=== PATIENT | male | born 1970 | race American Indian/Alaskan Native ===

== ENCOUNTER 2020-01-02 10:29 | Inpatient (IN) | payer OTHER ==
[2020-01-02] MEDS ORDERED: SODIUM CHLORIDE 0.9% 500 ML 500 ML IV ONE (10:34)
[2020-01-02 10:49] LABS: Hematocrit 39.3 % (35.5-45.6); Hemoglobin 13.4 gm/dl (11.8-15.2); Mean Corpuscular HGB Conc 34 % (32-34); Mean Corpuscular Volume 91 fl (84-94); Platelet Count 241 K/mm3 (140-440); Red Blood Count 4.32 M/mm3 (3.65-5.03); Red Cell Distribution Width 13.8 % (13.2-15.2)
--- NOTE | 2020-01-02 10:57 | XRay Report ---
CHEST 1 VIEW INDICATION / CLINICAL INFORMATION: possible Sepsis. COMPARISON: None available. FINDINGS: SUPPORT DEVICES: None. HEART / MEDIASTINUM: No significant abnormality. LUNGS / PLEURA: Low lung volumes without focal parenchymal or pleural disease. No pneumothorax. ADDITIONAL FINDINGS: No significant additional findings. IMPRESSION: 1. Low lung volumes without acute findings. Signer Name: Gerardo Nagel MD Signed: 01/02/2020 10:53 AM Workstation Name: [id number]
[2020-01-02 11:01] LABS: INR 1.22 (0.87-1.13)
[2020-01-02 11:07] LABS: Alanine Aminotransferase 13 units/L (7-56); Albumin 2.4 g/dL (3.9-5); BUN/Creatinine Ratio 12; Blood Urea Nitrogen 11 mg/dL (9-20); Calcium 9.3 mg/dL (8.4-10.2); Hemolysis Index 2
[2020-01-02] MEDS ORDERED: VANCOMYCIN/NS 1 GM/250 ML 1 GM/250 ML BAG IV ONE (11:19)
[2020-01-02] MEDS ORDERED: ACETAMINOPHEN 500 MG TAB PO ONE (11:24)
--- NOTE | 2020-01-02 11:26 | Emergency Department Report ---
HPI - General Chief Complaint: Skin/Abscess/Foreign Body Time Seen by Provider: 01/02/20 11:12 - HPI HPI: This is a 49-year-old -Turkish male presents to the emergency department from home with complaint of an abscess to the back of the neck and potentially upper back. Patient says that this started as a "knot" on Tuesday, 4 days ago. The patient went to an urgent care clinic 2 days ago and was told that he needs to get a CT scan. Patient says that he attempted to find some place to get a CT scan done but the "referrals would not go through." This morning he started having some foul drainage from the bottom of his neck. He presents with a fever, tachycardia, and a code sepsis has been initiated. The patient denies that he felt febrile but does present with a temperature of 101.9 F. He has a past medical history of [id number] diabetes and hypertension. He is an occasional cigar smoker. ED Past Medical Hx - Past Medical History Previous Medical History?: Yes Hx Hypertension: Yes Hx Diabetes: Yes ED Review of Systems ROS: Stated complaint: SICK Other details as noted in HPI Comment: All other systems reviewed and negative Constitutional: fever. denies: weakness Eyes: denies: eye pain, vision change ENT: denies: ear pain, throat pain Respiratory: denies: cough, shortness of breath Cardiovascular: denies: chest pain, palpitations Gastrointestinal: denies: vomiting, melena Genitourinary: denies: dysuria, discharge Musculoskeletal: back pain. denies: arthralgia Skin: lesions. denies: rash Neurological: denies: weakness, numbness Physical Exam - Physical Exam Vital Signs: Vital Signs 01/02/20 10:35 Temperature 101.9 F H Pulse Rate 139 H Respiratory 22 Rate Blood Pressure 152/80 [Right] O2 Sat by Pulse 97 Oximetry Physical Exam: GENERAL: The patient is well-developed well-nourished. HENT: Normocephalic. Atraumatic. Patient has moist mucous membranes. EYES: Extraocular motions are intact. NECK: Supple. Trachea is midline. CHEST/LUNGS: Clear to auscultation. There is no respiratory distress noted. HEART/CARDIOVASCULAR: Regular. There is moderate tachycardia. ABDOMEN: Abdomen is soft, nontender. Patient has normal bowel sounds. Morbidly obese habitus. SKIN: Skin is warm and dry. There is erythema, swelling and induration to the posterior head from the occiput down to the upper thoracic back. The skin is thickened with an orange peel appearance. There is a small area of purulent drainage to the inferior portion of the posterior neck. NEURO: The patient is awake, alert, and oriented. The patient is cooperative. The patient has no focal neurologic deficits. Normal speech. MUSCULOSKELETAL: There is no tenderness or deformity. There is no limitation range of motion. ED Course Vital Signs 01/02/20 10:35 Temperature 101.9 F H Pulse Rate 139 H Respiratory 22 Rate Blood Pressure 152/80 [Right] O2 Sat by Pulse 97 Oximetry ED Medical Decision Making - Lab Data Result diagrams: 01/02/20 10:38 01/02/20 10:38 - Radiology Data Radiology results: report reviewed, image reviewed interpreted by me: Chest x-ray does not show any acute process. There are no pleural effusions, obvious pneumonia and there is no pneumothorax. No significant cardiomegaly. CT NECK WITH CONTRAST HISTORY: Posterior neck abscess COMPARISON: None. TECHNIQUE: Routine CT of the neck is performed following intravenous contrast. All CT scans at this location are performed using CT dose reduction for ALARA by means of automated exposure control CONTRAST: 100 mL Omnipaque 300 FINDINGS: Cellulitis without abscess formation seen in the dorsal subcutaneous fat in the mid cervical region. No focal area of abscess formation is seen. This is resulting in extensive subcutaneous fatty stranding. There may be extension into the superficial posterior paraspinal muscles. Inflammatory changes at extending from the occiput up to thoracic region. Skull Base: No significant abnormality. Parotid, Carotid, Retropharyngeal, Prevertebral, Pharyngeal Mucosal, and Manuscript Editor Spaces: No abnormal mass, enhancing lesion or other significant abnormality. Airway: Patent and without significant abnormality. Lymphatics: Reactive lymph nodes bilaterally Vasculature: No significant abnormality. Osseous Structures: No significant abnormality Additional findings: None. IMPRESSION: Phlegmon (cellulitis) in the dorsal subcutaneous fat extending from the occiput after the thoracic region; no abscess formation; there may be extension into superficial posterior paraspinal muscle. - Medical Decision Making This patient presents to the emergency department with a 4-day history of progressive worsening tenderness and inflammation to the posterior neck and upper back. The patient came into triage and was found to have a fever and tachycardia and a code sepsis was initiated. Patient was given IV fluid resuscitation, acetaminophen and IV antibiotics. Labs shows a leukocytosis of 26,000. There is some hyperglycemia but no signs of diabetic ketoacidosis. On examination the patient has an area of swelling, erythema and induration from the occiput down to the upper thoracic back. A CT scan of the neck and upper back was done with IV contrast that shows a cellulitis and phlegmon but no current abscess. The patient was seen by the general surgeon in the emergency department feels that there is probably a small area of abscess that can be drained and the patient will be taken to the OR. After that the patient will be admitted to the hospital for further evaluation and treatment and was accepted for admission by the hospitalist, Dr. Todd. Critical Care Time: Yes Critical care time in (mins) excluding proc time.: 35 Critical care attestation.: If time is entered above; I have spent that time in minutes in the direct care of this critically ill patient, excluding procedure time. Critical care time was spent on this patient in doing his initial evaluation, multiple re- evaluations, ordering and interpretation of labs and imaging, IV antibiotics, IV fluid resuscitation, multiple discussions with the patient. Critical Care Time: 35 minutes ED Disposition Clinical Impression: Cellulitis of neck, Cellulitis of back, Neck abscess, Acute hyperglycemia Sepsis Qualifiers: Sepsis type: sepsis due to unspecified organism Sepsis acute organ dysfunction status: unspecified Qualified Code(s): A41.9 - Sepsis, unspecified organism Disposition: OP ADMIT IP TO THIS HOSP Is pt being admited?: Yes Condition: Serious Time of Disposition: 15:20
[2020-01-02 11:44] LABS: Basophils % (Manual) 0 % (0.0-1.8); Platelet Estimate Consistent w Auto; RBC Morphology Normal; Total Cells Counted 100
[2020-01-02] MEDS ORDERED: VANCOMYCIN 2,000 MG in SODIUM CHLORIDE 0.9% 500 ML 500 ML IV ONE (11:45)
[2020-01-02] MEDS ORDERED: SODIUM CHLORIDE 0.9% 1000 ML 2,000 ML IV ONE (11:51)
[2020-01-02] MEDS ORDERED: INSULIN REGULAR, HUMAN 100 UNIT/ML 3ML VIAL IV SCH (12:00)
[2020-01-02] MEDS ORDERED: INSULIN REGULAR, HUMAN 100 UNITS/1 ML ONE (12:00)
--- NOTE | 2020-01-02 12:00 | Cat Scan Report ---
CT NECK WITH CONTRAST HISTORY: Posterior neck abscess COMPARISON: None. TECHNIQUE: Routine CT of the neck is performed following intravenous contrast. All CT scans at this [facility] are performed using CT dose reduction for ALARA by means of automated exposure control CONTRAST: 100 mL Omnipaque 300 FINDINGS: Cellulitis without abscess formation seen in the dorsal subcutaneous fat in the mid cervical region. No focal area of abscess formation is seen. This is resulting in extensive subcutaneous fatty strandi ng. There may be extension into the superficial posterior paraspinal muscles. Inflammatory changes at extending from the occiput up to thoracic region. Skull Base: No significant abnormality. Parotid, Carotid, Retropharyngeal, Prevertebral, Pharyngeal Mucosal, and Mental Health Specialist Spaces: No abnorm al mass, enhancing lesion or other significant abnormality. Airway: Patent and without significant abnormality. Lymphatics: Reactive lymph nodes bilaterally Vasculature: No significant abnormality. Osseous Structures: No significant abnormality Additional findings: None. IMPRESSION: Phlegmon (cellulitis) in the dorsal subcutaneous fat extending from the occiput after the thoracic r egion; no abscess formation; there may be extension into superficial posterior paraspinal muscle. Signer Name: Alex Campbell MD Signed: 01/02/2020 11:56 AM Workstation Name: [id number]
[2020-01-02] MEDS ORDERED: IBUPROFEN 600 MG TAB PO PRN (12:32)
[2020-01-02] MEDS ORDERED: SODIUM CHLORIDE 0.9% 1000 ML IV SOLN IV ONE (12:32)
[2020-01-02] MEDS ORDERED: ONDANSETRON 4 MG/2 ML INJ IV PRN ×2 (12:32→15:09)
[2020-01-02] MEDS ORDERED: ALBUTEROL 2.5 MG/3 ML NEBU IH PRN (12:32)
[2020-01-02] MEDS ORDERED: ACETAMINOPHEN 325 MG TAB PO PRN ×3 (12:32→15:09)
--- NOTE | 2020-01-02 12:32 | History and Physical Report ---
History of Present Illness Chief complaint: My neck is hurting History of present illness: 49 YO Male with Obesity Hypoventilation Syndrome, DM, HTN presents to ED for evaluation. Patient states that he had experienced tenderness, swelling, and pain to the back of his neck over the past 1 week with progressively worsening symptoms over the past 4 days. Patient states that he developed a "knot" in his neck approximately 4 days ago and was seen and evaluated at urgent care 2 days ago for the aforementioned symptoms. Patient states that he has experienced tenderness, foul-smelling drainage from his upper back over the past 2 days. Patient also acknowledges fever to 101.9 F, as well as swelling to his neck. EMS was notified and upon arrival the patient was found to be in distress and subsequently transported to [facility] for further evaluation and care. Patient seen and evaluated in the emergency department. Lab and imaging studies reviewed. CT scan of the neck reveals extensive soft tissue swelling and cellulitis to the posterior cervical and thoracic region. Patient also found to have sepsis. Patient initiated on sepsis protocol and initiated on IV antibiotic therapy in emergency department. Surgery team consulted in ED for wound evaluation and assessment for possible debridement. Patient denies chills, chest pain, palpitations, productive cough, unilateral leg swelling, calf pain, shortness of breath, dizziness, syncope, recent ill contacts, or known exposure to COVID-19. Advanced care planning conducted in the emergency department. Patient informed that surgical evaluation needed prior to admission to determine if candidate is a candidate for surgical debridement and if debridement is possible at this institution. Patient is pending surgical evaluation.-My concern at this time is that the patient may developing a necrotizing soft tissue infection with involvement of the paraspinal muscles. Past History Past Medical History: diabetes, hypertension Past Surgical History: No surgical history (Reviewed), Other (Reviewed) Social history: single. denies: smoking, alcohol abuse, prescription drug abuse Family history: diabetes, hypertension Medications and Allergies Allergies Allergy/AdvReac Type Severity Reaction Status Date / Time Penicillins Allergy Anaphylaxis Verified 01/02/20 10:33 Active Meds: Active Medications Vancomycin HCl 2,000 mg/ (Sodium Chloride) 540 mls @ 250 mls/hr IV ONCE ONE Stop: 01/02/20 13:54 Last Admin: 01/02/20 12:29 Dose: 250 mls/hr Documented by: Sodium Chloride (Nacl 0.9% 1000 Ml) 2,000 mls @ 999 mls/hr IV BOLUS ONE Stop: 01/02/20 13:51 Last Admin: 01/02/20 12:12 Dose: 999 mls/hr Documented by: Insulin Human Regular (Humulin R) 4 unit IV ONCE STEPHY Last Admin: 01/02/20 12:19 Dose: 4 unit Documented by: Review of Systems Constitutional: fever, other (Neck pain), no weight loss, no weight gain, no weakness, no malaise, no lethargy Ears, nose, mouth and throat: no ear pain, no ear discharge, no tinnitis, no decreased hearing Cardiovascular: no chest pain, no orthopnea, no palpitations, no rapid/irregular heart beat, no edema Respiratory: no cough, no cough with sputum, no hemoptysis Gastrointestinal: no abdominal pain, no nausea, no diarrhea, no constipation, no change in bowel habits Genitourinary Male: no hematuria, no flank pain, no discharge, no urinary hesitancy, no nocturia, no incontinence Rectal: no pain, no incontinence, no bleeding Musculoskeletal: neck stiffness, neck pain, no shooting leg pain, no leg numbness/tingling, no morning stiffness, no muscle weakness, no muscle cramps, no limitation of motion Integumentary: rash, redness, no wounds, no jaundice, no boils Neurological: no head injury, no transient paralysis, no paralysis, no weakness, no numbness, no tingling Psychiatric: no anxiety, no memory loss, no sleep disturbances, no insomnia, no change in appetite Endocrine: no cold intolerance, no heat intolerance, no excessive thirst, no polydipsia, no nocturia, no flushing Hematologic/Lymphatic: no easy bruising, no easy bleeding, no lymphedema Allergic/Immunologic: no allergic rhinitis, no wheezing, no persistent infections, no anaphylaxis Exam - Constitutional Vitals: Temp Pulse Resp BP Pulse Ox 101.9 F H 139 H 18 152/80 99 01/02/20 10:35 01/02/20 10:35 01/02/20 12:12 01/02/20 10:35 01/02/20 11:53 General appearance: Present: mild distress - EENT Eyes: Present: PERRL ENT: hearing intact, clear oral mucosa - Neck Neck: Present: supple, normal ROM - Respiratory Respiratory effort: normal Respiratory: bilateral: CTA - Cardiovascular Heart Sounds: Present: S1 & S2. Absent: rub, click - Extremities Extremities: pulses symmetrical, No edema Extremity abnormal: edema, ulceration, erythema, other (Posterior cervical erythema, induration, purulent discharge) Peripheral Pulses: within normal limits - Abdominal General gastrointestinal: Present: soft, non-tender, non-distended, normal bowel sounds Male genitourinary: Present: normal - Integumentary Integumentary: Present: clear, warm, dry - Musculoskeletal Musculoskeletal: gait normal, strength equal bilaterally - Psychiatric Psychiatric: appropriate mood/affect, intact judgment & insight - Neurologic Neurologic: CNII-XII intact, moves all extremities Results - Labs CBC & Chem 7: 01/02/20 10:38 01/02/20 10:38 Labs: Abnormal lab results 01/02/20 01/02/20 01/02/20 Range/Units 10:38 10:38 10:38 WBC 26.1 H (4.5-11.0) K/mm3 Seg Neuts % (Manual) 87.0 H (40.0-70.0) % Lymphocytes % (Manual) 5.0 L (13.4-35.0) % Seg Neutrophils # Man 22.7 H (1.8-7.7) K/mm3 Monocytes # (Manual) 1.8 H (0.0-0.8) K/mm3 PT 15.6 H (12.2-14.9) Sec. INR 1.22 H (0.87-1.13) VBG pH (7.320-7.420) Sodium 132 L (137-145) mmol/L Chloride 91.1 L (98-107) mmol/L Carbon Dioxide 18 L (22-30) mmol/L Glucose 366 H (75-100) mg/dL Lactic Acid (0.7-2.0) mmol/L Alkaline Phosphatase 174 H (35-129) units/L Total Protein 8.5 H (6.3-8.2) g/dL Albumin 2.4 L (3.9-5) g/dL 01/02/20 01/02/20 Range/Units 10:38 10:38 WBC (4.5-11.0) K/mm3 Seg Neuts % (Manual) (40.0-70.0) % Lymphocytes % (Manual) (13.4-35.0) % Seg Neutrophils # Man (1.8-7.7) K/mm3 Monocytes # (Manual) (0.0-0.8) K/mm3 PT (12.2-14.9) Sec. INR (0.87-1.13) VBG pH 7.451 H (7.320-7.420) Sodium (137-145) mmol/L Chloride (98-107) mmol/L Carbon Dioxide (22-30) mmol/L Glucose (75-100) mg/dL Lactic Acid 4.00 H* (0.7-2.0) mmol/L Alkaline Phosphatase (35-129) units/L Total Protein (6.3-8.2) g/dL Albumin (3.9-5) g/dL Assessment and Plan - Patient Problems (1) Sepsis Current Visit: Yes Status: Acute Plan to address problem: Sepsis protocol: CBC, CMP, chest x-ray, urinalysis, IV antibiotic therapy, CT scan of the neck, monitor urine output every shift, maintain mean arterial blood pressure greater than or equal to 65, (2) Obesity hypoventilation syndrome Current Visit: No Status: Acute Plan to address problem: Supplemental oxygen, pulse oximetry, noninvasive positive pressure ventilation as clinically indicated. (3) Necrotizing soft tissue infection Current Visit: No Status: Acute Plan to address problem: Surgery team consulted in ED for evaluation and surgical debridement, IV antibiotic therapy, supportive care. (4) Acidosis Current Visit: Yes Status: Acute Plan to address problem: BMP, treat sepsis, IV fluid resuscitation therapy, repeat BMP in a.m., serial lactic acid level. (5) Diabetes Current Visit: Yes Status: Acute Plan to address problem: Consistent carbohydrate diet, Accu-Chek, sliding scale insulin therapy, hypoglycemia protocol (6) Hypertension Current Visit: Yes Status: Acute Qualifiers: Hypertension type: essential hypertension Qualified Code(s): I10 - Essential (primary) hypertension Plan to address problem: Monitor blood pressure every shift, continue medical management (7) DVT prophylaxis Current Visit: No Status: Acute Plan to address problem: SCD to bilateral lower extremities while in bed, patient is ambulatory
[2020-01-02] MEDS ORDERED: SODIUM CHLORIDE 0.9% 1000 ML 2,000 ML ONE (14:16)
[2020-01-02] MEDS: CLINDAMYCIN 600 MG/50 mL 600 MG/50 ML BAG IV SCH ×2 (15:40→21:27)
[2020-01-02] MEDS ORDERED: CLINDAMYCIN 600 MG/50 mL 600 MG/50 ML BAG IV ONE (15:41)
[2020-01-02] MEDS ORDERED: LIDOCAINE (1%) 10 MG/1 ML VIAL 20 ML MDV ONE (15:48)
[2020-01-02] MEDS ORDERED: BUPIVACAINE/PF (0.5%) 5 MG/1 ML 30 ML VIAL INFILTRATI ONE (15:48)
--- NOTE | 2020-01-02 16:03 | Anesthesia Consultation ---
Anesthesia Consult and Med Hx Date of service: 01/02/20 - Airway Anesthetic Teeth Evaluation: Good ROM Head & Neck: Adequate Mental/Hyoid Distance: Adequate Mallampati Class: Class II Intubation Access Assessment: Good - Pulmonary Exam CTA: Yes - Cardiac Exam Cardiac Exam: RRR - Pre-Operative Health Status ASA Pre-Surgery Classification: ASA2, ASA3, Emergency Proposed Anesthetic Plan: General - Cardiovascular System Hx Hypertension: Yes (has not taken any medications in overt a week) - Endocrine Hx Non-Insulin Dependent Diabetes: Yes (BG 354)
--- NOTE | 2020-01-02 16:04 | Anesthesia Day of Surgery ---
Anesthesia Day of Surgery - Day of Surgery Patient Examined: Yes Patient H&P Reviewed: Yes Patient is NPO: Yes
[2020-01-02] MEDS ORDERED: propofoL 200 MG/20 ML VIAL IV ONE ×2 (16:29→16:36)
--- NOTE | 2020-01-02 16:34 | Consultation ---
History of Present Illness Consult date: 01/02/20 Chief complaint: neck pain and swelling - History of present illness History of present illness: 49 yo M with hx of DM, morbid obesity who presents to ER with 4 days of posterior neck and upper back swelling and tenderness. He states that he has some purulent drainage from the area too. He has never had anything like this in the past. He states his DM is under control but does not know his last HbA1C. Had fever in ER. No n/v. No abd pain. Past History Past Medical History: diabetes, hypertension Past Surgical History: No surgical history (Reviewed), Other (Reviewed) Social history: single. denies: smoking, alcohol abuse, prescription drug abuse Family history: diabetes, hypertension Medications and Allergies Allergies Allergy/AdvReac Type Severity Reaction Status Date / Time Penicillins Allergy Anaphylaxis Verified 01/02/20 10:33 Active Meds: Active Medications Acetaminophen (Tylenol) 650 mg PO Q4H PRN PRN Reason: Pain MILD(1-3)/Fever >100.5/MORIN Albuterol (Proventil) 2.5 mg IH Q4HRT PRN PRN Reason: Shortness Of Breath Hydromorphone HCl (Dilaudid) 0.25 mg IV Q4H PRN PRN Reason: Pain, Moderate (4-6) Clindamycin HCl (Cleocin 600 Mg/50 Ml) 600 mg in 50 mls @ 100 mls/hr IV Q8HR STEPHY; Protocol Last Admin: 01/02/20 15:40 Dose: 100 mls/hr Documented by: Ibuprofen (Ibuprofen) 600 mg PO Q6H PRN PRN Reason: Pain, Mild (1-3) Insulin Human Regular (Humulin R) 4 unit IV ONCE STEPHY Last Admin: 01/02/20 12:19 Dose: 4 unit Documented by: Ondansetron HCl (Zofran) 4 mg IV Q8H PRN PRN Reason: Nausea And Vomiting Sodium Chloride (Sodium Chloride Flush Syringe 10 Ml) 10 ml IV BID STEPHY Sodium Chloride (Sodium Chloride Flush Syringe 10 Ml) 10 ml IV PRN PRN PRN Reason: LINE FLUSH Review of Systems All systems: negative (10 pt ROS performed and negative except that listed in HPI) Exam Vital Signs Temp Pulse Resp BP Pulse Ox 101.9 F H 139 H 22 152/80 97 01/02/20 10:35 01/02/20 10:35 01/02/20 10:35 01/02/20 10:35 01/02/20 10:35 Narrative exam: Gen: AAOx3. NAD. obese ENT: severe induration of posterior neck and occipital area with pinpoint area of purulent drainage. minimal TTP. minima erythema CV: S1, s2+ Resp: even and unlabored Ext: no c/c/e Results - Labs 01/02/20 10:38 01/02/20 10:38 Abnormal lab results 01/02/20 01/02/20 01/02/20 Range/Units 10:38 10:38 10:38 WBC 26.1 H (4.5-11.0) K/mm3 Seg Neuts % (Manual) 87.0 H (40.0-70.0) % Lymphocytes % (Manual) 5.0 L (13.4-35.0) % Seg Neutrophils # Man 22.7 H (1.8-7.7) K/mm3 Monocytes # (Manual) 1.8 H (0.0-0.8) K/mm3 PT 15.6 H (12.2-14.9) Sec. INR 1.22 H (0.87-1.13) VBG pH (7.320-7.420) Sodium 132 L (137-145) mmol/L Chloride 91.1 L (98-107) mmol/L Carbon Dioxide 18 L (22-30) mmol/L Glucose 366 H (75-100) mg/dL POC Glucose (70-105) Lactic Acid (0.7-2.0) mmol/L Alkaline Phosphatase 174 H (35-129) units/L Total Protein 8.5 H (6.3-8.2) g/dL Albumin 2.4 L (3.9-5) g/dL 01/02/20 01/02/20 01/02/20 Range/Units 10:38 10:38 12:33 WBC (4.5-11.0) K/mm3 Seg Neuts % (Manual) (40.0-70.0) % Lymphocytes % (Manual) (13.4-35.0) % Seg Neutrophils # Man (1.8-7.7) K/mm3 Monocytes # (Manual) (0.0-0.8) K/mm3 PT (12.2-14.9) Sec. INR (0.87-1.13) VBG pH 7.451 H (7.320-7.420) Sodium (137-145) mmol/L Chloride (98-107) mmol/L Carbon Dioxide (22-30) mmol/L Glucose (75-100) mg/dL POC Glucose 354 H (70-105) Lactic Acid 4.00 H* (0.7-2.0) mmol/L Alkaline Phosphatase (35-129) units/L Total Protein (6.3-8.2) g/dL Albumin (3.9-5) g/dL Diabetes panel 01/02/20 Range/Units 10:38 Sodium 132 L (137-145) mmol/L Potassium 3.7 (3.6-5.0) mmol/L Chloride 91.1 L (98-107) mmol/L Carbon Dioxide 18 L (22-30) mmol/L BUN 11 (9-20) mg/dL Creatinine 0.9 (0.8-1.3) mg/dL Glucose 366 H (75-100) mg/dL Calcium 9.3 (8.4-10.2) mg/dL AST 13 (5-40) units/L ALT 13 (7-56) units/L Alkaline Phosphatase 174 H (35-129) units/L Total Protein 8.5 H (6.3-8.2) g/dL Albumin 2.4 L (3.9-5) g/dL Calcium panel 01/02/20 Range/Units 10:38 Calcium 9.3 (8.4-10.2) mg/dL Albumin 2.4 L (3.9-5) g/dL Pituitary panel 01/02/20 Range/Units 10:38 Sodium 132 L (137-145) mmol/L Potassium 3.7 (3.6-5.0) mmol/L Chloride 91.1 L (98-107) mmol/L Carbon Dioxide 18 L (22-30) mmol/L BUN 11 (9-20) mg/dL Creatinine 0.9 (0.8-1.3) mg/dL Glucose 366 H (75-100) mg/dL Calcium 9.3 (8.4-10.2) mg/dL Adrenal panel 01/02/20 Range/Units 10:38 Sodium 132 L (137-145) mmol/L Potassium 3.7 (3.6-5.0) mmol/L Chloride 91.1 L (98-107) mmol/L Carbon Dioxide 18 L (22-30) mmol/L BUN 11 (9-20) mg/dL Creatinine 0.9 (0.8-1.3) mg/dL Glucose 366 H (75-100) mg/dL Calcium 9.3 (8.4-10.2) mg/dL Total Bilirubin 0.90 (0.1-1.2) mg/dL AST 13 (5-40) units/L ALT 13 (7-56) units/L Alkaline Phosphatase 174 H (35-129) units/L Total Protein 8.5 H (6.3-8.2) g/dL Albumin 2.4 L (3.9-5) g/dL - Imaging Additional studies: ct neck Assessment and Plan 49 yo M with 1. cellulitis and abscess of posterior neck 2. DM 3. obesity 4. sepsis 2/2 #1 Plan: 1. NPO 2. IVF 3. IV abx 4. prn pain control 5. HbA1C 6. Recommend incision and drainage of abscess. Will obtain cultures in OR. D iscussed this with patient and all risks, benefits, alternatives reviewed. Pt agreeable and consent obtained 7. printer's assistant consult Asked patient about NOK. He states he is estranged from his family and usually contacts his locomotive inspector. He was not able to reach his locomotive inspector prior to surgery. Thank you, please call with questions.
[2020-01-02] MEDS ORDERED: INSULIN REGULAR, HUMAN 100 UNIT/ML 3ML VIAL ONE (16:41)
[2020-01-02] MEDS ORDERED: fentaNYL 100 MCG/2 ML INJ ONE (16:44)
[2020-01-02] MEDS ORDERED: ONDANSETRON 4 MG/2 ML INJ ONE (16:45)
[2020-01-02] MEDS ORDERED: SODIUM CHLORIDE 0.9% IRR 1,500 ML BOTTLE IR ONE (17:00)
[2020-01-02] MEDS ORDERED: SODIUM CHLORIDE 0.9% 1000 ML 1,000 ML ONE (17:52)
--- NOTE | 2020-01-02 17:56 | Post Operative Note ---
Pre-op diagnosis: Cellulitis and abscess of posterior neck Post-op diagnosis: same Findings: 4 cm abscess cavity at base of neck posteriorly with severe surrounding induration measuring greater than 15 cm. Purulent drainage. Procedure: Incision and drainage of posterior neck abscess Anesthesia: GETA Surgeon: YUDI MINER Estimated blood loss: minimal Pathology: list (Wound cultures) Specimen disposition: to lab Condition: stable Disposition: PACU
--- NOTE | 2020-01-02 19:04 | Post Anesthesia Evaluation ---
- Post Anesthesia Evaluation Patient Participated: Yes Airway Patent: Yes Stable Respiratory Function: Yes Nausea/Vomiting: No Temp > 96.8F: Yes Pain Manageable: Yes Adequeate Hydration: Yes Anesthesia Complications: No Block Receding Appropriately: Not Applicable Patient on Ventilator: No
[2020-01-02] MEDS: SODIUM CHLORIDE 0.9% 1000 ML 1,000 ML IV SCH (21:27)
[2020-01-03 04:36] LABS: Bacteria,Urine 1+ /HPF (Negative); Bilirubin,Urine NEG (Negative); Blood,Urine NEG (Negative); Color,Urine Amber (Yellow); Mucus,Urine FEW /HPF
[2020-01-03 05:48] LABS: Hematocrit 32.7 % (35.5-45.6); Hemoglobin 10.8 gm/dl (11.8-15.2); Mean Corpuscular HGB Conc 33 % (32-34); Mean Corpuscular Volume 92 fl (84-94); Platelet Count 207 K/mm3 (140-440); Red Blood Count 3.57 M/mm3 (3.65-5.03)
[2020-01-03 05:49] LABS: Basophils # (Auto) 0.1 K/mm3 (0.0-0.1); Basophils % (Auto) 0.4 % (0.0-1.8); Eosinophils # (Auto) 0.2 K/mm3 (0.0-0.4); Eosinophils % (Auto) 1.1 % (0.0-4.3); Lymphocytes # (Auto) 1.5 K/mm3 (1.2-5.4); Lymphocytes % (Auto) 7.7 % (13.4-35.0); Monocytes # (Auto) 1.8 K/mm3 (0.0-0.8); Monocytes % (Auto) 9.2 % (0.0-7.3)
[2020-01-03 06:09] LABS: Blood Urea Nitrogen 11 mg/dL (9-20); Calcium 7.8 mg/dL (8.4-10.2); Hemolysis Index 6
[2020-01-03 06:13] LABS: BUN/Creatinine Ratio 16
[2020-01-03] MEDS: SODIUM CHLORIDE 0.9% 1000 ML 1,000 ML IV SCH (09:22)
--- NOTE | 2020-01-03 09:22 | Operative Report ---
Operative Report Operative Report: Date: 01/02/20 Pre-op diagnosis: Cellulitis and abscess of posterior neck Post-op diagnosis: same Findings: 4 cm abscess cavity at base of neck posteriorly with severe surrounding induration measuring greater than 15 cm. Purulent drainage. Procedure: Incision and drainage of posterior neck abscess Anesthesia: ZHOU Surgeon: YUDI MINER Estimated blood loss: minimal Pathology: list (Wound cultures) Specimen disposition: to lab Condition: stable Disposition: PACU HPI and indication: Patient is a 49-year-old male with a history of obesity and poorly controlled diabetes who presented to the emergency room with 4 days of swelling of his posterior neck and upper back along with purulent drainage from the area. The patient denied any trauma and denies any issues like this in the past. He had 1 fever in the emergency room. On physical exam the patient was found to have severe cellulitis, induration, and abscess of posterior neck. It was recommended that he undergo incision and drainage. All risk, benefits, alternatives surgery discussed patient questions answered. Consent obtained. Procedure in detail: Patient was identified in the preoperative area, taken back to the operating room and placed on the operating room table in left lateral decubitus position. All bony prominences were padded appropriately and beanbag was utilized. Once the patient was secured, anesthesia was induced. The posterior neck and upper back were prepped and draped in usual sterile fashion a timeout performed. In the area of purulent drainage, there was a small opening in the skin which was probed with a hemostat. There was a abscess cavity underlying this area which was unroofed by making an incision using a 10 blade. This is incision was carried down inferiorly to unroofed the remainder of the abscess cavity. The total incision measured approximately 5 cm. The abscess cavity was probed and all loculations broken up using a gloved finger. There was a copious amount of purulent drainage from the abscess cavity and surrounding indurated and inflamed tissue. Wound cultures were obtained. The abscess cavity itself measured approximately 4 cm however there was severe surrounding induration measuring greater than 15 cm. The wound was irrigated and hemostasis carefully achieved using electrocautery and pressure. 1 piece of Surgicel was placed in the wound and pressure held. Once hemostasis was ensured the wound was packed with 1 piece of saline moistened fluff gauze. Another piece of Surgicel was placed along the skin. A dry 4 x 4 gauze ABD pad and tape were then applied. At the end of the case all sponge, instrument, sharp counts were correct x2. The patient tolerated the procedure well. He was awoken from anesthesia, taken to PACU in stable condition.
[2020-01-03] MEDS ORDERED: DEXTROSE 50% IN WATER (25GM) 50 ML SYRINGE IV PRN (09:30)
--- NOTE | 2020-01-03 10:20 | Progress Note ---
Assessment and Plan Assessment and plan: 49 YO Male with Obesity Hypoventilation Syndrome, DM, HTN presents to ED for evaluation. Patient states that he had experienced tenderness, swelling, and pain to the back of his neck over the past 1 week with progressively worsening symptoms over the past 4 days. Patient states that he developed a "knot" in his neck approximately 4 days ago and was seen and evaluated at urgent care 2 days ago for the aforementioned symptoms. Patient states that he has experienced tenderness, foul-smelling drainage from his upper back over the past 2 days. Patient also acknowledges fever to 101.9 F, as well as swelling to his neck. EMS was notified and upon arrival the patient was found to be in distress and subsequently transported to [facility] for further evaluation and care. Patient seen and evaluated in the emergency department. Lab and imaging studies reviewed. CT scan of the neck reveals extensive soft tissue swelling and cellulitis to the posterior cervical and thoracic region. Patient also found to have sepsis. Patient initiated on sepsis protocol and initiated on IV antibiotic therapy in emergency department. Surgery team consulted in ED for wound evaluation and assessment for possible d ebridement. Patient underwent surgical procedure as noted below without any complication Pre-op diagnosis: Cellulitis and abscess of posterior neck Post-op diagnosis: same Findings: 4 cm abscess cavity at base of neck posteriorly with severe surrounding induration measuring greater than 15 cm. Purulent drainage. Procedure: Incision and drainage of posterior neck abscess 01/02: A1c noted to be greater than 10 insulin regimen with sliding scale and long-acting Lantus started. Discussed with nursing staff to obtain home medication list. Counseling provided to the patient on need for compliance. And risk associated with noncompliance. ID consultation due to sepsis is significant abscess cavity as noted. Also wound culture ordered. Continue current antibiotic and pain control still with low-grade fever. (1) Sepsis-present on admission Current Visit: Yes Status: Acute Plan to address problem: Sepsis protocol: CBC, CMP, chest x-ray, urinalysis, IV antibiotic therapy, CT scan of the neck, monitor urine output every shift, maintain mean arterial blood pressure greater than or equal to 65, (2) Obesity hypoventilation syndrome Current Visit: No Status: Acute Plan to address problem: Supplemental oxygen, pulse oximetry, noninvasive positive pressure ventilation as clinically indicated. (3) Necrotizing soft tissue infection Current Visit: No Status: Acute Plan to address problem: Surgery team consulted in ED for evaluation and surgical debridement, IV antibiotic therapy, supportive care. (4) Acidosis Current Visit: Yes Status: Acute Plan to address problem: BMP, treat sepsis, IV fluid resuscitation therapy, repeat BMP in a.m., serial lactic acid level. (5) Diabetes mellitus uncontrolled Current Visit: Yes Status: Acute Plan to address problem: Consistent carbohydrate diet, Accu-Chek, sliding scale insulin therapy, hypoglycemia protocol (6) Hypertension Current Visit: Yes Status: Acute Qualifiers: Hypertension type: essential hypertension Qualified Code(s): I10 - Essential (primary) hypertension Plan to address problem: Monitor blood pressure every shift, continue medical management (7) DVT prophylaxis Current Visit: No Status: Acute Plan to address problem: SCD to bilateral lower extremities while in bed, patient is ambulatory History Interval history: Patient seen and examined no acute distress at this time. Reports to me that he has been out of his diabetic medication for a "MINUTE" now. States that he was waiting to come back into town to [employer] his medicines. Mild pain at site of surgical incision and drainage. No other adverse event reported by nursing staff Hospitalist Physical - Physical exam Narrative exam: VITAL SIGNS: Reviewed. GENERAL: The patient appears normally developed, morbidly obese vital signs as documented. HEAD: No signs of head trauma. EYES: Pupils are equal. Extraocular motions intact. EARS: Hearing grossly intact. MOUTH: Oropharynx is normal. NECK: No adenopathy, no JVD. CHEST: Chest with clear breath sounds bilaterally. No wheezes, rales, or rhonchi. CARDIAC: Regular rate and rhythm. S1 and S2, without murmurs, gallops, or rubs. VASCULAR: No Edema. Peripheral pulses normal and equal in all extremities. ABDOMEN: Soft, non tender and non distended. No rebound or guarding, and no masses palpated. Bowel Sounds normal. MUSCULOSKELETAL: Good range of motion of all major joints. Extremities without clubbing, cyanosis or edema. NEUROLOGIC EXAM: Alert and oriented x 3 No focal sensory or strength deficits. Speech normal. Follows commands. PSYCHIATRIC: Mood normal. SKIN: Dressing to the back of the neck detail exam as documented in skin assessment - Constitutional Vitals: Temp Pulse Resp BP Pulse Ox 98.2 F 92 H 18 94/62 94 01/03/20 07:41 01/03/20 07:41 01/03/20 07:41 01/03/20 07:41 01/03/20 07:41 General appearance: Present: mild distress Results - Labs CBC & Chem 7: 01/03/20 03:21 01/03/20 03:21 Labs: Laboratory Last Values WBC 20.0 K/mm3 (4.5-11.0) H 01/03/20 03:21 RBC 3.57 M/mm3 (3.65-5.03) L 01/03/20 03:21 Hgb 10.8 gm/dl (11.8-15.2) L 01/03/20 03:21 Hct 32.7 % (35.5-45.6) L D 01/03/20 03:21 MCV 92 fl (84-94) 01/03/20 03:21 MCH 30 pg (28-32) 01/03/20 03:21 MCHC 33 % (32-34) 01/03/20 03:21 RDW 14.0 % (13.2-15.2) 01/03/20 03:21 Plt Count 207 K/mm3 (140-440) 01/03/20 03:21 Lymph % (Auto) 7.7 % (13.4-35.0) L 01/03/20 03:21 [place] % (Auto) 9.2 % (0.0-7.3) H 01/03/20 03:21 Eos % (Auto) 1.1 % (0.0-4.3) 01/03/20 03:21 Baso % (Auto) 0.4 % (0.0-1.8) 01/03/20 03:21 Lymph # 1.5 K/mm3 (1.2-5.4) 01/03/20 03:21 [place] # 1.8 K/mm3 (0.0-0.8) H 01/03/20 03:21 Eos # 0.2 K/mm3 (0.0-0.4) 01/03/20 03:21 Baso # 0.1 K/mm3 (0.0-0.1) 01/03/20 03:21 Add Manual Diff Complete 01/02/20 10:38 Total Counted 100 01/02/20 10:38 Seg Neutrophils % 81.6 % (40.0-70.0) H 01/03/20 03:21 Seg Neuts % (Manual) 87.0 % (40.0-70.0) H 01/02/20 10:38 Band Neutrophils % 0 % 01/02/20 10:38 Lymphocytes % (Manual) 5.0 % (13.4-35.0) L 01/02/20 10:38 Reactive Lymphs % (Man) 0 % 01/02/20 10:38 Monocytes % (Manual) 7.0 % (0.0-7.3) 01/02/20 10:38 Eosinophils % (Manual) 1.0 % (0.0-4.3) 01/02/20 10:38 Basophils % (Manual) 0 % (0.0-1.8) 01/02/20 10:38 Metamyelocytes % 0 % 01/02/20 10:38 Myelocytes % 0 % 01/02/20 10:38 Promyelocytes % 0 % 01/02/20 10:38 Blast Cells % 0 % 01/02/20 10:38 Nucleated RBC % Not Reportable 01/02/20 10:38 Seg Neutrophils # 16.3 K/mm3 (1.8-7.7) H 01/03/20 03:21 Seg Neutrophils # Man 22.7 K/mm3 (1.8-7.7) H 01/02/20 10:38 Band Neutrophils # 0.0 K/mm3 01/02/20 10:38 Lymphocytes # (Manual) 1.3 K/mm3 (1.2-5.4) 01/02/20 10:38 Abs React Lymphs (Man) 0.0 K/mm3 01/02/20 10:38 Monocytes # (Manual) 1.8 K/mm3 (0.0-0.8) H 01/02/20 10:38 Eosinophils # (Manual) 0.3 K/mm3 (0.0-0.4) 01/02/20 10:38 Basophils # (Manual) 0.0 K/mm3 (0.0-0.1) 01/02/20 10:38 Metamyelocytes # 0.0 K/mm3 01/02/20 10:38 Myelocytes # 0.0 K/mm3 01/02/20 10:38 Promyelocytes # 0.0 K/mm3 01/02/20 10:38 Blast Cells # 0.0 K/mm3 01/02/20 10:38 WBC Morphology Not Reportable 01/02/20 10:38 Hypersegmented Neuts Not Reportable 01/02/20 10:38 Hyposegmented Neuts Not Reportable 01/02/20 10:38 Hypogranular Neuts Not Reportable 01/02/20 10:38 Smudge Cells Not Reportable 01/02/20 10:38 Toxic Granulation Not Reportable 01/02/20 10:38 Toxic Vacuolation Not Reportable 01/02/20 10:38 Dohle Bodies Not Reportable 01/02/20 10:38 Pelger-Huet Anomaly Not Reportable 01/02/20 10:38 Jarad Rods Not Reportable 01/02/20 10:38 Platelet Estimate Consistent w auto 01/02/20 10:38 Clumped Platelets Not Reportable 01/02/20 10:38 Plt Clumps, EDTA Not Reportable 01/02/20 10:38 Large Platelets Not Reportable 01/02/20 10:38 Giant Platelets Not Reportable 01/02/20 10:38 Platelet Satelliting Not Reportable 01/02/20 10:38 Plt Morphology Comment Not Reportable 01/02/20 10:38 RBC Morphology Normal 01/02/20 10:38 Dimorphic RBCs Not Reportable 01/02/20 10:38 Polychromasia Not Reportable 01/02/20 10:38 Hypochromasia Not Reportable 01/02/20 10:38 Poikilocytosis Not Reportable 01/02/20 10:38 Anisocytosis Not Reportable 01/02/20 10:38 Microcytosis Not Reportable 01/02/20 10:38 Macrocytosis Not Reportable 01/02/20 10:38 Spherocytes Not Reportable 01/02/20 10:38 Pappenheimer Bodies Not Reportable 01/02/20 10:38 Sickle Cells Not Reportable 01/02/20 10:38 Target Cells Not Reportable 01/02/20 10:38 Tear Drop Cells Not Reportable 01/02/20 10:38 Ovalocytes Not Reportable 01/02/20 10:38 Helmet Cells Not Reportable 01/02/20 10:38 Canela-Cheverly Bodies Not Reportable 01/02/20 10:38 [place] Rings Not Reportable 01/02/20 10:38 [place] Cells Not Reportable 01/02/20 10:38 Bite Cells Not Reportable 01/02/20 10:38 Crenated Cell Not Reportable 01/02/20 10:38 Elliptocytes Not Reportable 01/02/20 10:38 Acanthocytes (Spur) Not Reportable 01/02/20 10:38 Rouleaux Not Reportable 01/02/20 10:38 Hemoglobin C Crystals Not Reportable 01/02/20 10:38 Schistocytes Not Reportable 01/02/20 10:38 Malaria parasites Not Reportable 01/02/20 10:38 Richard Bodies Not Reportable 01/02/20 10:38 Hem Pathologist Commnt No 01/02/20 10:38 PT 15.6 Sec. (12.2-14.9) H 01/02/20 10:38 INR 1.22 (0.87-1.13) H 01/02/20 10:38 VBG pH 7.451 (7.320-7.420) H 01/02/20 10:38 Sodium 134 mmol/L (137-145) L 01/03/20 03:21 Potassium 3.6 mmol/L (3.6-5.0) 01/03/20 03:21 Chloride 97.4 mmol/L (98-107) L 01/03/20 03:21 Carbon Dioxide 19 mmol/L (22-30) L 01/03/20 03:21 Anion Gap 21 mmol/L 01/03/20 03:21 BUN 11 mg/dL (9-20) 01/03/20 03:21 Creatinine 0.7 mg/dL (0.8-1.3) L 01/03/20 03:21 Estimated GFR > 60 ml/min 01/03/20 03:21 BUN/Creatinine Ratio 16 % 01/03/20 03:21 Glucose 293 mg/dL (75-100) H 01/03/20 03:21 POC Glucose 322 (70-105) H 01/03/20 07:53 Hemoglobin A1c 13.0 % (4-6) H 01/03/20 03:21 Lactic Acid 1.50 mmol/L (0.7-2.0) 01/03/20 03:21 Calcium 7.8 mg/dL (8.4-10.2) L D 01/03/20 03:21 Total Bilirubin 0.90 mg/dL (0.1-1.2) 01/02/20 10:38 AST 13 units/L (5-40) 01/02/20 10:38 ALT 13 units/L (7-56) 01/02/20 10:38 Alkaline Phosphatase 174 units/L (35-129) H 01/02/20 10:38 Total Protein 8.5 g/dL (6.3-8.2) H 01/02/20 10:38 Albumin 2.4 g/dL (3.9-5) L 01/02/20 10:38 Albumin/Globulin Ratio 0.4 % 01/02/20 10:38 Urine Color Nadya (Yellow) 01/03/20 04:05 Urine Turbidity Clear (Clear) 01/03/20 04:05 Urine pH 6.0 (5.0-7.0) 01/03/20 04:05 Ur Specific [place] 1.031 (1.003-1.030) H 01/03/20 04:05 Urine Protein 100 mg/dl mg/dL (Negative) 01/03/20 04:05 Urine Glucose (UA) >=500 mg/dL (Negative) 01/03/20 04:05 Urine Ketones 80 mg/dL (Negative) 01/03/20 04:05 Urine Blood Neg (Negative) 01/03/20 04:05 Urine Nitrite Neg (Negative) 01/03/20 04:05 Urine Bilirubin Neg (Negative) 01/03/20 04:05 Urine Urobilinogen 4.0 mg/dL (<2.0) 01/03/20 04:05 Ur Leukocyte Esterase Tr (Negative) 01/03/20 04:05 Urine WBC (Auto) 9.0 /HPF (0.0-6.0) H 01/03/20 04:05 Urine RBC (Auto) 5.0 /HPF (0.0-6.0) 01/03/20 04:05 U Epithel Cells (Auto) 5.0 /HPF (0-13.0) 01/03/20 04:05 Urine Bacteria (Auto) 1+ /HPF (Negative) 01/03/20 04:05 Urine Mucus Few /HPF 01/03/20 04:05 Blood Type A POSITIVE 01/02/20 12:45 Antibody Screen Negative 01/02/20 12:45 Microbiology: Microbiology 01/02/20 10:38 Peripheral/Venous Blood Culture - Preliminary Culture in Progress 01/02/20 10:38 Peripheral/Venous Blood Culture - Preliminary Culture in Progress Payne/IV: Voiding Method Urinal IV Catheter Type [Right INT / Saline Lock Forearm] Active Medications - Current Medications Current Medications: Generic Name Dose Route Start Last Admin Trade Name Freq PRN Reason Stop Dose Admin Acetaminophen 650 mg 01/02/20 15:09 01/03/20 05:46 Tylenol PO 650 mg Q4H PRN Administration Pain MILD(1-3)/Fever >100.5/MORIN Albuterol 2.5 mg 01/02/20 12:32 Proventil IH Q4HRT PRN Shortness Of Breath Dextrose 50 ml 01/03/20 09:30 D50w (25gm) Syringe IV Q30MIN PRN Hypoglycemia Protocol Hydromorphone HCl 0.25 mg 01/02/20 12:32 Dilaudid IV Q4H PRN Pain, Moderate (4-6) Clindamycin HCl 600 mg in 50 mls @ 100 mls/hr 01/02/20 14:00 01/02/20 21:27 Cleocin 600 Mg/50 Ml IV 100 mls/hr Q8HR STEPHY Administration Protocol Sodium Chloride 1,000 mls @ 100 mls/hr 01/02/20 20:30 01/03/20 09:22 Nacl 0.9% 1000 Ml IV 100 mls/hr DIRECT STEPHY Administration Ibuprofen 600 mg 01/02/20 12:32 Ibuprofen PO Q6H PRN Pain, Mild (1-3) Insulin Glargine 12 units 01/03/20 22:00 Lantus SUB-Q QHS STEPHY Insulin Human Lispro 0 unit 01/03/20 11:30 Humalog SUB-Q ACHS STEPHY Protocol Ondansetron HCl 4 mg 01/02/20 15:09 Zofran IV Q8H PRN Nausea And Vomiting Sodium Chloride 10 ml 01/02/20 22:00 01/03/20 10:18 Sodium Chloride Flush Syringe 10 Ml IV Not Given BID STEPHY Sodium Chloride 10 ml 01/02/20 15:09 Sodium Chloride Flush Syringe 10 Ml IV PRN PRN LINE FLUSH
[2020-01-03] MEDS: INSULIN LISPRO 100 UNIT/ML VIAL 3 mL SUB-Q SCH ×4 (10:36→21:33)
--- NOTE | 2020-01-03 13:11 | Progress Note ---
Assessment and Plan 49-year-old male status post incision and drainage of posterior neck abscess, postop day 1 Plan; 1. strict glucose control 2. IV abx 3. OR cultures pending 4. consistent carb diet 5. gentle IVF 6. prn PO pain control 7. daily dressing changes per RN 8. Case management c/s for HHC 9. Pt to follow up in surgery clinic after dc Patient ok to be discharged from surgery standpoint once HHC arranged and afebrile x 24 hours. Likely dc planning tomorrow. Discussed with Dr. Antony Thank you for this consultation. Please call with any questions or concerns. Subjective Date of service: 01/03/20 Narrative: Patient seen and examined. He feels well. Slight soreness in the area of the neck. T-max 100.3. Objective Vital Signs - 12hr 01/03/20 01/03/20 01/03/20 02:07 04:23 05:46 Temperature 100.3 F H Pulse Rate 112 H Respiratory 20 20 18 Rate Blood Pressure 107/53 O2 Sat by Pulse 95 Oximetry 01/03/20 01/03/20 01/03/20 07:37 07:41 12:00 Temperature 98.8 F 98.2 F 98.8 F Pulse Rate 102 H 92 H 101 H Respiratory 20 18 20 Rate Blood Pressure 113/63 94/62 117/68 O2 Sat by Pulse 98 94 99 Oximetry - General physical appearance Narrative Exam: General: Awake, alert, oriented x3. No apparent distress ENT: Posterior neck dressing removed and 1 piece of gauze packing removed from wound. The wound is clean and dry with minimal purulent drainage. There is no odor. There is significant periwound induration which is unchanged as well as edema of the skin. The wound was packed with 1 piece of [place] and covered with a dry dressing. CV: S1, S2 present Respiratory: No audible wheezes - Labs 01/03/20 03:21 01/03/20 03:21 Diabetes panel 01/03/20 01/03/20 Range/Units 03:21 03:21 Sodium 134 L (137-145) mmol/L Potassium 3.6 (3.6-5.0) mmol/L Chloride 97.4 L (98-107) mmol/L Carbon Dioxide 19 L (22-30) mmol/L BUN 11 (9-20) mg/dL Creatinine 0.7 L (0.8-1.3) mg/dL Glucose 293 H (75-100) mg/dL Hemoglobin A1c 13.0 H (4-6) % Calcium 7.8 L D (8.4-10.2) mg/dL Calcium panel 01/03/20 Range/Units 03:21 Calcium 7.8 L D (8.4-10.2) mg/dL Pituitary panel 01/03/20 Range/Units 03:21 Sodium 134 L (137-145) mmol/L Potassium 3.6 (3.6-5.0) mmol/L Chloride 97.4 L (98-107) mmol/L Carbon Dioxide 19 L (22-30) mmol/L BUN 11 (9-20) mg/dL Creatinine 0.7 L (0.8-1.3) mg/dL Glucose 293 H (75-100) mg/dL Calcium 7.8 L D (8.4-10.2) mg/dL Adrenal panel 01/03/20 Range/Units 03:21 Sodium 134 L (137-145) mmol/L Potassium 3.6 (3.6-5.0) mmol/L Chloride 97.4 L (98-107) mmol/L Carbon Dioxide 19 L (22-30) mmol/L BUN 11 (9-20) mg/dL Creatinine 0.7 L (0.8-1.3) mg/dL Glucose 293 H (75-100) mg/dL Calcium 7.8 L D (8.4-10.2) mg/dL
[2020-01-03] MEDS: CLINDAMYCIN 600 MG/50 mL 600 MG/50 ML BAG IV SCH (13:58)
--- NOTE | 2020-01-03 14:21 | Consultation ---
History of Present Illness - Reason for Consult Consult date: 01/03/20 - History of Present Illness 49 yo M PMHx morbid obesity, DM2, HTN admitted to the hospital complaining of swelling and pain of the back of his neck for approximately 1 year. 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 He notes a "knot" back there and went to urgent care with no acute treatment performed. The knot became more painful and tender and subsequently began drainaing foul smelling fluid. He complained of associated fevers, sweats, chills. He was found to have an abscess of the neck and cellulitis, and was taken to the OR for debridement. Febrile on admission to 101.9 with a white count of 20. Currently on clindamycin. Cultures pending. Imaging personally reviewed: CT neck: phlegmon but no abscess. Review of Systems: Bold if positive, otherwise negative General: fevers, chills, rigors HEENT: visual disturbance, diplopia, eye pain Respiratory: cough, sputum, hemoptysis, shortness of breath Cardiovascular: chest pain, syncope Gastrointestinal: nausea, vomiting, diarrhea, abdominal pain Genitourinary: dysuria, hematuria, flank pain Musculoskeletal: neck pain, back pain, joint pain, edema Neurologic: headaches, seizures Hematologic: easy bruising or bleeding Endocrine: night sweats, acute weight loss Skin: rash, jaundice, redness Psychiatric: suicidal, homicidal ideation Past History Past Medical History: diabetes, hypertension Past Surgical History: No surgical history (Reviewed), Other (Reviewed) Social history: single. denies: smoking, alcohol abuse, prescription drug abuse Family history: diabetes, hypertension Medications and Allergies Allergies Allergy/AdvReac Type Severity Reaction Status Date / Time Penicillins Allergy Anaphylaxis Verified 01/02/20 10:33 Active Meds: Active Medications Acetaminophen (Tylenol) 650 mg PO Q4H PRN PRN Reason: Pain MILD(1-3)/Fever >100.5/MORIN Last Admin: 01/03/20 05:46 Dose: 650 mg Documented by: Albuterol (Proventil) 2.5 mg IH Q4HRT PRN PRN Reason: Shortness Of Breath Dextrose (D50w (25gm) Syringe) 50 ml IV Q30MIN PRN; Protocol PRN Reason: Hypoglycemia Hydromorphone HCl (Dilaudid) 0.25 mg IV Q4H PRN PRN Reason: Pain, Moderate (4-6) Clindamycin HCl (Cleocin 600 Mg/50 Ml) 600 mg in 50 mls @ 100 mls/hr IV Q8HR [facility]; Protocol Last Admin: 01/03/20 13:58 Dose: 100 mls/hr Documented by: Sodium Chloride (Nacl 0.9% 1000 Ml) 1,000 mls @ 100 mls/hr IV DIRECT STEPHY Last Admin: 01/03/20 09:22 Dose: 100 mls/hr Documented by: Ibuprofen (Ibuprofen) 600 mg PO Q6H PRN PRN Reason: Pain, Mild (1-3) Insulin Glargine (Lantus) 12 units SUB-Q QHS STEPHY Insulin Human Lispro (Humalog) 0 unit SUB-Q ACHS [facility]; Protocol Last Admin: 01/03/20 12:59 Dose: 8 unit Documented by: Ondansetron HCl (Zofran) 4 mg IV Q8H PRN PRN Reason: Nausea And Vomiting Sodium Chloride (Sodium Chloride Flush Syringe 10 Ml) 10 ml IV BID [facility] Last Admin: 01/03/20 10:18 Dose: Not Given Documented by: Sodium Chloride (Sodium Chloride Flush Syringe 10 Ml) 10 ml IV PRN PRN PRN Reason: LINE FLUSH Sodium Hypochlorite (Dakin's Half Strength) 1 applic TP BID [facility] Physical Examination - Physical Exam Narrative exam: Physical Exam: Constitutional: Alert, cooperative. No acute distress Head, Ears, Nose: Normocephalic, atraumatic. External ears, nose normal Eyes: Conjunctivae/corneas clear. No icterus. No ptosis. Neck: SS/p drainage with bandage, noted induration and rednes surrounding. Oral: dentition fair, no thrush Cardiovascular: S1, S2 normal. Respiratory: Good air entry, clear to auscultation bilaterally GI: Soft, non-tender; bowel sounds normal. No peritoneal signs. Musculoskeletal: No pedal edema, no cyanosis. Skin: No rash or abscess Hem/Lymphatic: No palpable cervical or supraclavicular nodes. No lymphangitis Psych: Mood ok. Affect normal Neurological: Awake, alert, oriented. No gross abnormality - Constitutional Vitals: Vital Signs Temp Pulse Resp BP Pulse Ox 98.8 F 101 H 20 117/68 99 01/03/20 12:00 09/03/20 12:00 01/03/20 12:00 01/03/20 12:00 01/03/20 12:00 Temperature -Last 24 Hours Temperature 98.8 F Temperature 98.2 F Temperature 98.8 F Temperature 100.3 F Temperature 97.9 F Temperature 99.8 F Temperature 99.5 F Temperature 98.3 F Temperature 98.2 F Results - Labs CBC & Chem 7: 01/03/20 03:21 01/03/20 03:21 Labs: Abnormal lab results 01/02/20 01/02/20 01/02/20 Range/Units 12:33 17:35 19:30 WBC (4.5-11.0) K/mm3 RBC (3.65-5.03) M/mm3 Hgb (11.8-15.2) gm/dl Hct (35.5-45.6) % Lymph % (Auto) (13.4-35.0) % [place] % (Auto) (0.0-7.3) % [place] # (0.0-0.8) K/mm3 Seg Neutrophils % (40.0-70.0) % Seg Neutrophils # (1.8-7.7) K/mm3 Sodium (137-145) mmol/L Chloride (98-107) mmol/L Carbon Dioxide (22-30) mmol/L Creatinine (0.8-1.3) mg/dL Glucose (75-100) mg/dL POC Glucose 354 H 230 H (70-105) Hemoglobin A1c (4-6) % Lactic Acid 2.80 H* (0.7-2.0) mmol/L Calcium (8.4-10.2) mg/dL Ur Specific [place] (1.003-1.030) Urine WBC (Auto) (0.0-6.0) /HPF 01/02/20 01/03/20 01/03/20 Range/Units 21:06 03:21 03:21 WBC 20.0 H (4.5-11.0) K/mm3 RBC 3.57 L (3.65-5.03) M/mm3 Hgb 10.8 L (11.8-15.2) gm/dl Hct 32.7 L D (35.5-45.6) % Lymph % (Auto) 7.7 L (13.4-35.0) % [place] % (Auto) 9.2 H (0.0-7.3) % [place] # 1.8 H (0.0-0.8) K/mm3 Seg Neutrophils % 81.6 H (40.0-70.0) % Seg Neutrophils # 16.3 H (1.8-7.7) K/mm3 Sodium 134 L (137-145) mmol/L Chloride 97.4 L (98-107) mmol/L Carbon Dioxide 19 L (22-30) mmol/L Creatinine 0.7 L (0.8-1.3) mg/dL Glucose 293 H (75-100) mg/dL POC Glucose 267 H (70-105) Hemoglobin A1c (4-6) % Lactic Acid (0.7-2.0) mmol/L Calcium 7.8 L D (8.4-10.2) mg/dL Ur Specific [place] (1.003-1.030) Urine WBC (Auto) (0.0-6.0) /HPF 01/03/20 01/03/20 01/03/20 Range/Units 03:21 04:05 07:53 WBC (4.5-11.0) K/mm3 RBC (3.65-5.03) M/mm3 Hgb (11.8-15.2) gm/dl Hct (35.5-45.6) % Lymph % (Auto) (13.4-35.0) % [place] % (Auto) (0.0-7.3) % [place] # (0.0-0.8) K/mm3 Seg Neutrophils % (40.0-70.0) % Seg Neutrophils # (1.8-7.7) K/mm3 Sodium (137-145) mmol/L Chloride (98-107) mmol/L Carbon Dioxide (22-30) mmol/L Creatinine (0.8-1.3) mg/dL Glucose (75-100) mg/dL POC Glucose 322 H (70-105) Hemoglobin A1c 13.0 H (4-6) % Lactic Acid (0.7-2.0) mmol/L Calcium (8.4-10.2) mg/dL Ur Specific [place] 1.031 H (1.003-1.030) Urine WBC (Auto) 9.0 H (0.0-6.0) /HPF 01/03/20 Range/Units 12:16 WBC (4.5-11.0) K/mm3 RBC (3.65-5.03) M/mm3 Hgb (11.8-15.2) gm/dl Hct (35.5-45.6) % Lymph % (Auto) (13.4-35.0) % [place] % (Auto) (0.0-7.3) % [place] # (0.0-0.8) K/mm3 Seg Neutrophils % (40.0-70.0) % Seg Neutrophils # (1.8-7.7) K/mm3 Sodium (137-145) mmol/L Chloride (98-107) mmol/L Carbon Dioxide (22-30) mmol/L Creatinine (0.8-1.3) mg/dL Glucose (75-100) mg/dL POC Glucose 314 H (70-105) Hemoglobin A1c (4-6) % Lactic Acid (0.7-2.0) mmol/L Calcium (8.4-10.2) mg/dL Ur Specific [place] (1.003-1.030) Urine WBC (Auto) (0.0-6.0) /HPF Assessment and Plan Cultures: Blood culture pending Wound culture pending A/P: 49 yo M PMHx morbid obesity, Dm2 admitted with neck abscess and cellulitis #Acute sepsis: present with fevers and leukocytosis, secondary to neck abscess and cellulitis #Neck abscess: s/p drainage, awaiting surgical culture results. #Cellulitis: Given surrounding cellulitis, recommend treating for 2 weeks. #DM2: tight glycemic control for best wound healing. Recs: -Stopped clindamycin -Started vancomycin -Follow up blood and surgical cultures -Discharge recommendations pending culture results. Thank you for the consult, we will continue to follow. Ana Barrera MD [facility] ([facility]) M: [phone] O: [phone] F: [phone]
[2020-01-03] MEDS ORDERED: VANCOMYCIN PHARMACY TO DOSE IV SCH (15:00)
[2020-01-03] MEDS: VANCOMYCIN 2,000 MG in SODIUM CHLORIDE 0.9% 500 ML 500 ML IV SCH (15:53)
[2020-01-03] MEDS: SODIUM HYPOCHLORITE, DAKIN'S 1/2 STRENGTH (0.25%) 473 ML TOPICAL SOLN TP SCH (21:26)
[2020-01-03] MEDS: INSULIN GLARGINE 100 UNITS/ML SUB-Q SCH (21:29)
[2020-01-04] MEDS: VANCOMYCIN 2,000 MG in SODIUM CHLORIDE 0.9% 500 ML 500 ML IV SCH ×2 (03:41→15:21)
[2020-01-04] MEDS: SODIUM CHLORIDE 0.9% 1000 ML 1,000 ML IV SCH ×2 (03:41→22:48)
[2020-01-04 07:29] LABS: Hematocrit 31.3 % (35.5-45.6); Hemoglobin 10.2 gm/dl (11.8-15.2); Mean Corpuscular HGB Conc 33 % (32-34); Mean Corpuscular Volume 92 fl (84-94); Platelet Count 210 K/mm3 (140-440); Red Cell Distribution Width 14.2 % (13.2-15.2)
[2020-01-04 07:39] LABS: Blood Urea Nitrogen 10 mg/dL (9-20); Calcium 8.3 mg/dL (8.4-10.2); Hemolysis Index 13
[2020-01-04 08:08] LABS: BUN/Creatinine Ratio 17
[2020-01-04] MEDS: INSULIN LISPRO 100 UNIT/ML VIAL 3 mL SUB-Q SCH ×4 (08:48→22:29)
[2020-01-04] MEDS: HYDROmorphone 1 MG/1 ML INJ IV PRN ×2 (08:54→22:39)
[2020-01-04 11:18] LABS: Basophils % (Auto) 0.3 % (0.0-1.8); Eosinophils # (Auto) 0.2 K/mm3 (0.0-0.4); Eosinophils % (Auto) 1.2 % (0.0-4.3); Hemoglobin 10.1 gm/dl (11.8-15.2); Lymphocytes # (Auto) 1.4 K/mm3 (1.2-5.4); Lymphocytes % (Auto) 11.1 % (13.4-35.0); Mean Corpuscular HGB Conc 33 % (32-34); Mean Corpuscular Volume 92 fl (84-94); Monocytes # (Auto) 1.1 K/mm3 (0.0-0.8); Monocytes % (Auto) 9.2 % (0.0-7.3); Platelet Count 212 K/mm3 (140-440); Red Blood Count 3.37 M/mm3 (3.65-5.03); Red Cell Distribution Width 14.1 % (13.2-15.2)
--- NOTE | 2020-01-04 13:50 | Progress Note ---
Assessment and Plan Assessment and plan: 49 YO Male with Obesity Hypoventilation Syndrome, DM, HTN presents to ED for evaluation. Patient states that he had experienced tenderness, swelling, and pain to the back of his neck over the past 1 week with progressively worsening symptoms over the past 4 days. Patient states that he developed a "knot" in his neck approximately 4 days ago and was seen and evaluated at urgent care 2 days ago for the aforementioned symptoms. Patient states that he has experienced tenderness, foul-smelling drainage from his upper back over the past 2 days. Patient also acknowledges fever to 101.9 F, as well as swelling to his neck. EMS was notified and upon arrival the patient was found to be in distress and subsequently transported to [facility] for further evaluation and care. Patient seen and evaluated in the emergency department. Lab and imaging studies reviewed. CT scan of the neck reveals extensive soft tissue swelling and cellulitis to the posterior cervical and thoracic region. Patient also found to have sepsis. Patient initiated on sepsis protocol and initiated on IV antibiotic therapy in emergency department. Surgery team consulted in ED for wound evaluation and assessment for possible d ebridement. Patient underwent surgical procedure as noted below without any complication Pre-op diagnosis: Cellulitis and abscess of posterior neck Post-op diagnosis: same Findings: 4 cm abscess cavity at base of neck posteriorly with severe surrounding induration measuring greater than 15 cm. Purulent drainage. Procedure: Incision and drainage of posterior neck abscess 01/02: A1c noted to be greater than 10 insulin regimen with sliding scale and long-acting Lantus started. Discussed with nursing staff to obtain home medication list. Counseling provided to the patient on need for compliance. And risk associated with noncompliance. ID consultation due to sepsis is significant abscess cavity as noted. Also wound culture ordered. Continue current antibiotic and pain control still with low-grade fever. 01/03. He complains of neck pain today. Rates it as 7/10. He is on vancomycin and ID is following. Had temp 101 yesterday. Blood glucose slightly elevated. Will continue to adjust insulin regimen Assessment and plan (1) Sepsis-present on admission Current Visit: Yes Status: Acute Plan to address problem: Sepsis protocol: CBC, CMP, chest x-ray, urinalysis, IV antibiotic therapy, CT scan of the neck, monitor urine output every shift, maintain mean arterial blood pressure greater than or equal to 65, (2) Obesity hypoventilation syndrome Current Visit: No Status: Acute Plan to address problem: Supplemental oxygen, pulse oximetry, noninvasive positive pressure ventilation as clinically indicated. (3) Necrotizing soft tissue infection Current Visit: No Status: Acute Plan to address problem: Surgery team consulted in ED for evaluation and surgical debridement, IV antibiotic therapy, supportive care. (4) Acidosis Current Visit: Yes Status: Acute Plan to address problem: BMP, treat sepsis, IV fluid resuscitation therapy, repeat BMP in a.m., serial lactic acid level. (5) Diabetes mellitus uncontrolled Current Visit: Yes Status: Acute Plan to address problem: Consistent carbohydrate diet, Accu-Chek, sliding scale insulin therapy, hypoglycemia protocol (6) Hypertension Current Visit: Yes Status: Acute Qualifiers: Hypertension type: essential hypertension Qualified Code(s): I10 - Essential (primary) hypertension Plan to address problem: Monitor blood pressure every shift, continue medical management (7) DVT prophylaxis Current Visit: No Status: Acute Plan to address problem: SCD to bilateral lower extremities while in bed, patient is ambulatory History Interval history: See assessment and plan Hospitalist Physical - Constitutional Vitals: Temp Pulse Resp BP Pulse Ox 98.9 F 94 H 20 120/69 98 01/04/20 11:07 01/04/20 11:07 01/04/20 11:07 01/04/20 11:07 01/04/20 11:07 General appearance: Present: mild distress - EENT Eyes: Present: PERRL - Neck Neck: Present: supple, other (wound dressing intact) - Respiratory Respiratory: bilateral: CTA - Cardiovascular Rhythm: regular Heart Sounds: Present: S1 & S2 - Extremities Extremities: no ischemia, No edema - Abdominal General gastrointestinal: soft, non-tender, non-distended, normal bowel sounds - Psychiatric Psychiatric: appropriate mood/affect - Neurologic Neurologic: CNII-XII intact Results - Labs CBC & Chem 7: 01/04/20 10:57 01/04/20 06:38 Labs: Laboratory Last Values WBC 12.4 K/mm3 (4.5-11.0) H 01/04/20 10:57 RBC 3.37 M/mm3 (3.65-5.03) L 01/04/20 10:57 Hgb 10.1 gm/dl (11.8-15.2) L 01/04/20 10:57 Hct 31.0 % (35.5-45.6) L 01/04/20 10:57 MCV 92 fl (84-94) 01/04/20 10:57 MCH 30 pg (28-32) 01/04/20 10:57 MCHC 33 % (32-34) 01/04/20 10:57 RDW 14.1 % (13.2-15.2) 01/04/20 10:57 Plt Count 212 K/mm3 (140-440) 01/04/20 10:57 Lymph % (Auto) 11.1 % (13.4-35.0) L 01/04/20 10:57 [place] % (Auto) 9.2 % (0.0-7.3) H 01/04/20 10:57 Eos % (Auto) 1.2 % (0.0-4.3) 01/04/20 10:57 Baso % (Auto) 0.3 % (0.0-1.8) 01/04/20 10:57 Lymph # 1.4 K/mm3 (1.2-5.4) 01/04/20 10:57 [place] # 1.1 K/mm3 (0.0-0.8) H 01/04/20 10:57 Eos # 0.2 K/mm3 (0.0-0.4) 01/04/20 10:57 Baso # 0.0 K/mm3 (0.0-0.1) 01/04/20 10:57 Add Manual Diff Complete 01/02/20 10:38 Total Counted 100 01/02/20 10:38 Seg Neutrophils % 78.2 % (40.0-70.0) H 01/04/20 10:57 Seg Neuts % (Manual) 87.0 % (40.0-70.0) H 01/02/20 10:38 Band Neutrophils % 0 % 01/02/20 10:38 Lymphocytes % (Manual) 5.0 % (13.4-35.0) L 01/02/20 10:38 Reactive Lymphs % (Man) 0 % 01/02/20 10:38 Monocytes % (Manual) 7.0 % (0.0-7.3) 01/02/20 10:38 Eosinophils % (Manual) 1.0 % (0.0-4.3) 01/02/20 10:38 Basophils % (Manual) 0 % (0.0-1.8) 01/02/20 10:38 Metamyelocytes % 0 % 01/02/20 10:38 Myelocytes % 0 % 01/02/20 10:38 Promyelocytes % 0 % 01/02/20 10:38 Blast Cells % 0 % 01/02/20 10:38 Nucleated RBC % Not Reportable 01/02/20 10:38 Seg Neutrophils # 9.7 K/mm3 (1.8-7.7) H 01/04/20 10:57 Seg Neutrophils # Man 22.7 K/mm3 (1.8-7.7) H 01/02/20 10:38 Band Neutrophils # 0.0 K/mm3 01/02/20 10:38 Lymphocytes # (Manual) 1.3 K/mm3 (1.2-5.4) 01/02/20 10:38 Abs React Lymphs (Man) 0.0 K/mm3 01/02/20 10:38 Monocytes # (Manual) 1.8 K/mm3 (0.0-0.8) H 01/02/20 10:38 Eosinophils # (Manual) 0.3 K/mm3 (0.0-0.4) 01/02/20 10:38 Basophils # (Manual) 0.0 K/mm3 (0.0-0.1) 01/02/20 10:38 Metamyelocytes # 0.0 K/mm3 01/02/20 10:38 Myelocytes # 0.0 K/mm3 01/02/20 10:38 Promyelocytes # 0.0 K/mm3 01/02/20 10:38 Blast Cells # 0.0 K/mm3 01/02/20 10:38 WBC Morphology Not Reportable 01/02/20 10:38 Hypersegmented Neuts Not Reportable 01/02/20 10:38 Hyposegmented Neuts Not Reportable 01/02/20 10:38 Hypogranular Neuts Not Reportable 01/02/20 10:38 Smudge Cells Not Reportable 01/02/20 10:38 Toxic Granulation Not Reportable 01/02/20 10:38 Toxic Vacuolation Not Reportable 01/02/20 10:38 Dohle Bodies Not Reportable 01/02/20 10:38 Pelger-Huet Anomaly Not Reportable 01/02/20 10:38 Jarad Rods Not Reportable 01/02/20 10:38 Platelet Estimate Consistent w auto 01/02/20 10:38 Clumped Platelets Not Reportable 01/02/20 10:38 Plt Clumps, EDTA Not Reportable 01/02/20 10:38 Large Platelets Not Reportable 01/02/20 10:38 Giant Platelets Not Reportable 01/02/20 10:38 Platelet Satelliting Not Reportable 01/02/20 10:38 Plt Morphology Comment Not Reportable 01/02/20 10:38 RBC Morphology Normal 01/02/20 10:38 Dimorphic RBCs Not Reportable 01/02/20 10:38 Polychromasia Not Reportable 01/02/20 10:38 Hypochromasia Not Reportable 01/02/20 10:38 Poikilocytosis Not Reportable 01/02/20 10:38 Anisocytosis Not Reportable 01/02/20 10:38 Microcytosis Not Reportable 01/02/20 10:38 Macrocytosis Not Reportable 01/02/20 10:38 Spherocytes Not Reportable 01/02/20 10:38 Pappenheimer Bodies Not Reportable 01/02/20 10:38 Sickle Cells Not Reportable 01/02/20 10:38 Target Cells Not Reportable 01/02/20 10:38 Tear Drop Cells Not Reportable 01/02/20 10:38 Ovalocytes Not Reportable 01/02/20 10:38 Helmet Cells Not Reportable 01/02/20 10:38 Canela-Como Bodies Not Reportable 01/02/20 10:38 [place] Rings Not Reportable 01/02/20 10:38 [place] Cells Not Reportable 01/02/20 10:38 Bite Cells Not Reportable 01/02/20 10:38 Crenated Cell Not Reportable 01/02/20 10:38 Elliptocytes Not Reportable 01/02/20 10:38 Acanthocytes (Spur) Not Reportable 01/02/20 10:38 Rouleaux Not Reportable 01/02/20 10:38 Hemoglobin C Crystals Not Reportable 01/02/20 10:38 Schistocytes Not Reportable 01/02/20 10:38 Malaria parasites Not Reportable 01/02/20 10:38 Richard Bodies Not Reportable 01/02/20 10:38 Hem Pathologist Commnt No 01/02/20 10:38 PT 15.6 Sec. (12.2-14.9) H 01/02/20 10:38 INR 1.22 (0.87-1.13) H 01/02/20 10:38 VBG pH 7.451 (7.320-7.420) H 01/02/20 10:38 Sodium 136 mmol/L (137-145) L 01/04/20 06:38 Potassium 3.5 mmol/L (3.6-5.0) L 01/04/20 06:38 Chloride 98.5 mmol/L (98-107) 01/04/20 06:38 Carbon Dioxide 25 mmol/L (22-30) 01/04/20 06:38 Anion Gap 16 mmol/L 01/04/20 06:38 BUN 10 mg/dL (9-20) 01/04/20 06:38 Creatinine 0.6 mg/dL (0.8-1.3) L 01/04/20 06:38 Estimated GFR > 60 ml/min 01/04/20 06:38 BUN/Creatinine Ratio 17 % 01/04/20 06:38 Glucose 266 mg/dL (75-100) H 01/04/20 06:38 POC Glucose 279 (70-105) H 01/04/20 11:22 Hemoglobin A1c 13.0 % (4-6) H 01/03/20 03:21 Lactic Acid 1.50 mmol/L (0.7-2.0) 01/03/20 03:21 Calcium 8.3 mg/dL (8.4-10.2) L 01/04/20 06:38 Total Bilirubin 0.90 mg/dL (0.1-1.2) 01/02/20 10:38 AST 13 units/L (5-40) 01/02/20 10:38 ALT 13 units/L (7-56) 01/02/20 10:38 Alkaline Phosphatase 174 units/L (35-129) H 01/02/20 10:38 Total Protein 8.5 g/dL (6.3-8.2) H 01/02/20 10:38 Albumin 2.4 g/dL (3.9-5) L 01/02/20 10:38 Albumin/Globulin Ratio 0.4 % 01/02/20 10:38 Urine Color [place] (Yellow) 01/03/20 04:05 Urine Turbidity Clear (Clear) 01/03/20 04:05 Urine pH 6.0 (5.0-7.0) 01/03/20 04:05 Ur Specific [place] 1.031 (1.003-1.030) H 01/03/20 04:05 Urine Protein 100 mg/dl mg/dL (Negative) 01/03/20 04:05 Urine Glucose (UA) >=500 mg/dL (Negative) 01/03/20 04:05 Urine Ketones 80 mg/dL (Negative) 01/03/20 04:05 Urine Blood Neg (Negative) 01/03/20 04:05 Urine Nitrite Neg (Negative) 01/03/20 04:05 Urine Bilirubin Neg (Negative) 01/03/20 04:05 Urine Urobilinogen 4.0 mg/dL (<2.0) 01/03/20 04:05 Ur Leukocyte Esterase Tr (Negative) 01/03/20 04:05 Urine WBC (Auto) 9.0 /HPF (0.0-6.0) H 01/03/20 04:05 Urine RBC (Auto) 5.0 /HPF (0.0-6.0) 01/03/20 04:05 U Epithel Cells (Auto) 5.0 /HPF (0-13.0) 01/03/20 04:05 Urine Bacteria (Auto) 1+ /HPF (Negative) 01/03/20 04:05 Urine Mucus Few /HPF 01/03/20 04:05 Blood Type A POSITIVE 01/02/20 12:45 Antibody Screen Negative 01/02/20 12:45 Microbiology: Microbiology 01/02/20 10:38 Peripheral/Venous Blood Culture - Preliminary 01/02/20 Unknown Neck Surgical Culture - Preliminary Staphylococcus Aureus 01/02/20 10:38 Peripheral/Venous Blood Culture - Preliminary NO GROWTH AFTER 48 HOURS Payne/IV: Voiding Method Urinal IV Catheter Type [Right INT / Saline Lock Forearm] Active Medications - Current Medications Current Medications: Generic Name Dose Route Start Last Admin Trade Name Freq PRN Reason Stop Dose Admin Acetaminophen 650 mg 01/02/20 15:09 01/03/20 05:46 Tylenol PO 650 mg Q4H PRN Administration Pain MILD(1-3)/Fever >100.5/MORIN Albuterol 2.5 mg 01/02/20 12:32 Proventil IH Q4HRT PRN Shortness Of Breath Dextrose 50 ml 01/03/20 09:30 D50w (25gm) Syringe IV Q30MIN PRN Hypoglycemia Protocol Hydromorphone HCl 0.25 mg 01/02/20 12:32 01/04/20 08:54 Dilaudid IV 0.25 mg Q4H PRN Administration Pain, Moderate (4-6) Sodium Chloride 1,000 mls @ 100 mls/hr 01/02/20 20:30 01/04/20 03:41 Nacl 0.9% 1000 Ml IV 100 mls/hr DIRECT STE[facility] Administration Vancomycin HCl 2,000 mg/ 540 mls @ 250 mls/hr 01/03/20 15:00 01/04/20 03:41 Sodium Chloride IV 250 mls/hr Q12H [facility] Administration Ibuprofen 600 mg 01/02/20 12:32 Ibuprofen PO Q6H PRN Pain, Mild (1-3) Insulin Glargine 12 units 01/03/20 22:00 01/03/20 21:29 Lantus SUB-Q 12 units QHS STEPHY Administration Insulin Human Lispro 0 unit 01/03/20 10:30 01/04/20 12:14 Humalog SUB-Q 6 unit ACHS [facility] Administration Protocol Ondansetron HCl 4 mg 01/02/20 15:09 Zofran IV Q8H PRN Nausea And Vomiting Sodium Chloride 10 ml 01/02/20 22:00 01/04/20 12:15 Sodium Chloride Flush Syringe 10 Ml IV Not Given BID [facility] Sodium Chloride 10 ml 01/02/20 15:09 Sodium Chloride Flush Syringe 10 Ml IV PRN PRN LINE FLUSH Sodium Hypochlorite 1 applic 01/03/20 22:00 01/03/20 21:26 Dakin's Half Strength TP 1 applic BID STE[facility] Administration
[2020-01-04] MEDS: SODIUM HYPOCHLORITE, DAKIN'S 1/2 STRENGTH (0.25%) 473 ML TOPICAL SOLN TP SCH (14:46)
[2020-01-04] MEDS: oxyCODONE ER 10 MG TAB PO SCH (14:47)
--- NOTE | 2020-01-04 16:58 | Progress Note ---
Assessment and Plan Cultures: Blood culture pending Wound culture pending A/P: 49 yo M PMHx morbid obesity, Dm2 admitted with neck abscess and cellulitis #Acute sepsis: present with fevers and leukocytosis, secondary to neck abscess and cellulitis #Neck abscess: s/p drainage, awaiting surgical culture results. #Cellulitis: Given surrounding cellulitis, recommend treating for 2 weeks. #DM2: tight glycemic control for best wound healing. Recs: -Stopped vancomycin -Start Ancef 2 g every 8 hours -Okay for discharge from infectious disease perspective on Keflex 5 mg every 6 hours to complete 2 total weeks from the date of the drainage. Stop date . -Follow-up in [place] telemedicine prior to antibiotic stop date Thank you for the consult, we will continue to follow. Ana Barrera MD [facility] ([facility]) M: [phone] O: [phone] F: [phone] Subjective Date of service: 01/04/20 Interval history: Afebrile overnight white count improved to 13. Cultures with MSSA. Objective - Exam Narrative Exam: Physical Exam: Constitutional: Alert, cooperative. No acute distress Head, Ears, Nose: Normocephalic, atraumatic. External ears, nose normal Eyes: Conjunctivae/corneas clear. Neck: SS/p drainage with bandage, noted induration and redness surrounding. Oral: dentition fair, no thrush Cardiovascular: S1, S2 normal. Respiratory: Good air entry, clear to auscultation bilaterally GI: Soft, non-tender; bowel sounds normal. No peritoneal signs. Musculoskeletal: No pedal edema, no cyanosis. Skin: No rash or abscess Hem/Lymphatic: No palpable cervical or supraclavicular nodes. No lymphangitis Psych: Mood ok. Affect normal Neurological: Awake, alert, oriented. No gross abnormality - Constitutional Vitals: Vital Signs Temp Pulse Resp BP Pulse Ox 98.9 F 94 H 20 120/69 98 01/04/20 11:07 01/04/20 11:07 01/04/20 11:07 01/04/20 11:07 01/04/20 11:07 Temperature -Last 24 Hours Temperature 98.9 F Temperature 98.0 F Temperature 100.0 F Temperature 99.3 F Temperature 100.1 F - Labs CBC & Chem 7: 01/04/20 10:57 01/04/20 06:38 Labs: Abnormal lab results 01/03/20 01/04/20 01/04/20 Range/Units 21:19 06:38 06:38 WBC 13.4 H (4.5-11.0) K/mm3 RBC 3.40 L (3.65-5.03) M/mm3 Hgb 10.2 L (11.8-15.2) gm/dl Hct 31.3 L (35.5-45.6) % Lymph % (Auto) (13.4-35.0) % [place] % (Auto) (0.0-7.3) % [place] # (0.0-0.8) K/mm3 Seg Neutrophils % (40.0-70.0) % Seg Neutrophils # (1.8-7.7) K/mm3 Sodium 136 L (137-145) mmol/L Potassium 3.5 L (3.6-5.0) mmol/L Creatinine 0.6 L (0.8-1.3) mg/dL Glucose 266 H (75-100) mg/dL POC Glucose 309 H (70-105) Calcium 8.3 L (8.4-10.2) mg/dL 01/04/20 01/04/20 01/04/20 Range/Units 07:17 10:57 11:22 WBC 12.4 H (4.5-11.0) K/mm3 RBC 3.37 L (3.65-5.03) M/mm3 Hgb 10.1 L (11.8-15.2) gm/dl Hct 31.0 L (35.5-45.6) % Lymph % (Auto) 11.1 L (13.4-35.0) % [place] % (Auto) 9.2 H (0.0-7.3) % [place] # 1.1 H (0.0-0.8) K/mm3 Seg Neutrophils % 78.2 H (40.0-70.0) % Seg Neutrophils # 9.7 H (1.8-7.7) K/mm3 Sodium (137-145) mmol/L Potassium (3.6-5.0) mmol/L Creatinine (0.8-1.3) mg/dL Glucose (75-100) mg/dL POC Glucose 265 H 279 H (70-105) Calcium (8.4-10.2) mg/dL 01/04/20 Range/Units 16:16 WBC (4.5-11.0) K/mm3 RBC (3.65-5.03) M/mm3 Hgb (11.8-15.2) gm/dl Hct (35.5-45.6) % Lymph % (Auto) (13.4-35.0) % [place] % (Auto) (0.0-7.3) % [place] # (0.0-0.8) K/mm3 Seg Neutrophils % (40.0-70.0) % Seg Neutrophils # (1.8-7.7) K/mm3 Sodium (137-145) mmol/L Potassium (3.6-5.0) mmol/L Creatinine (0.8-1.3) mg/dL Glucose (75-100) mg/dL POC Glucose 310 H (70-105) Calcium (8.4-10.2) mg/dL
[2020-01-04] MEDS: INSULIN GLARGINE 100 UNITS/ML SUB-Q SCH (22:28)
[2020-01-05] MEDS: oxyCODONE ER 10 MG TAB PO SCH ×2 (02:22→14:05)
[2020-01-05] MEDS: SODIUM HYPOCHLORITE, DAKIN'S 1/2 STRENGTH (0.25%) 473 ML TOPICAL SOLN TP SCH (02:25)
[2020-01-05] MEDS: VANCOMYCIN 2,000 MG in SODIUM CHLORIDE 0.9% 500 ML 500 ML IV SCH (03:40)
[2020-01-05] MEDS: INSULIN LISPRO 100 UNIT/ML VIAL 3 mL SUB-Q SCH ×2 (08:13→11:55)
[2020-01-05 08:17] VITALS: BP 130/78
[2020-01-05] MEDS ORDERED: POLYETHYLENE GLYCOL 3350 17 GM POWDER PO ONE (10:00)
--- NOTE | 2020-01-05 10:09 | Discharge Summary ---
Providers - Providers Date of Admission: 01/02/20 12:32 Date of discharge: 01/05/20 Attending physician: EDWIN ALVARADO 01/02/20 12:35 Consult to Wound/ET Nurse [CONS] Routine Reason For Exam: wound eval 01/02/20 12:51 Consult to Physician [CONS] Routine Comment: Consulting Provider: YUDI MINER Physician Instructions: Reason For Exam: neck and back phlegmon and cellulitis 01/03/20 09:21 Consult to Physician [CONS] Routine Comment: Consulting Provider: RAMYA STEVENS Physician Instructions: Reason For Exam: cellulitis Primary care physician: [employer] Hospitalization Condition: Serious Hospital course: 49 YO Male with Obesity Hypoventilation Syndrome, DM, HTN presents to ED for evaluation. Patient states that he had experienced tenderness, swelling, and pain to the back of his neck over the past 1 week with progressively worsening symptoms over the past 4 days. Patient states that he developed a "knot" in his neck approximately 4 days ago and was seen and evaluated at urgent care 2 days ago for the aforementioned symptoms. Patient states that he has experienced tenderness, foul-smelling drainage from his upper back over the past 2 days. Patient also acknowledges fever to 101.9 F, as well as swelling to his neck. EMS was notified and upon arrival the patient was found to be in distress and subsequently transported to [facility] for further evaluation and care. Patient seen and evaluated in the emergency department. Lab and imaging studies reviewed. CT scan of the neck reveals extensive soft tissue swelling and cellulitis to the posterior cervical and thoracic region. Patient also found to have sepsis. Patient initiated on sepsis protocol and initiated on IV antibiotic therapy in emergency department. Surgery team consulted in ED for wound evaluation and assessment for possible debridement. Patient underwent surgical procedure as noted below without any complication Pre-op diagnosis: Cellulitis and abscess of posterior neck Post-op diagnosis: same Findings: 4 cm abscess cavity at base of neck posteriorly with severe surrounding induration measuring greater than 15 cm. Purulent drainage. Procedure: Incision and drainage of posterior neck abscess 01/02: A1c noted to be greater than 10 insulin regimen with sliding scale and long-acting Lantus started. Discussed with nursing staff to obtain home medication list. Counseling provided to the patient on need for compliance. And risk associated with noncompliance. ID consultation due to sepsis is significant abscess cavity as noted. Also wound culture ordered. Continue current antibiotic and pain control still with low-grade fever. 01/03. He complains of neck pain today. Rates it as /10. He is on vancomycin and ID is following. Had temp 101 yesterday. Blood glucose slightly elevated. Will continue to adjust insulin regimen. 01/04. Patient has been cleared from ID standpoint. Remained afebrile for 24 hours. He will be discharged on bactrim (complete on 01/16). He will call telemedicine prior to completion of antibiotics. He will be discharged with home health. Plan to continue wound dressing and follow up with surgery clinic after dc. He has poorly controlled DM and HbA1c is 13. I have advised him that he needs insulin for management of his DM. I have prescribed Novolin which is more affordable as he has no insurance. He will follow up with lead man over [facility] in [employer] at discharge Disposition: [id number] HOME UNDER HOME HLTH - Discharge Diagnoses (1) Cellulitis of neck Status: Acute (2) Neck abscess Status: Acute (3) Sepsis Status: Acute Qualifiers: Sepsis type: sepsis due to unspecified organism Sepsis acute organ dysfunction status: unspecified Qualified Code(s): A41.9 - Sepsis, unspecified organism Core Measure Documentation - Palliative Care Palliative Care/ Comfort Measures: Not Applicable - Core Measures Any of the following diagnoses?: none Exam - Constitutional Vitals: Temp Pulse Resp BP Pulse Ox 98.7 F 92 H 16 130/78 96 01/05/20 08:15 01/05/20 08:15 01/05/20 08:15 01/05/20 08:15 01/05/20 08:15 General appearance: Present: no acute distress, well-nourished - EENT Eyes: Present: PERRL ENT: hearing intact, clear oral mucosa - Neck Neck: Present: supple, other (Wound dressing intact. ) - Respiratory Respiratory effort: normal Respiratory: bilateral: CTA - Cardiovascular Heart Sounds: Present: S1 & S2. Absent: rub, click - Extremities Extremities: pulses symmetrical, No edema Peripheral Pulses: within normal limits - Abdominal General gastrointestinal: Present: soft, non-tender, non-distended, normal bowel sounds Male genitourinary: Present: normal - Integumentary Integumentary: Present: clear, warm, dry - Musculoskeletal Musculoskeletal: gait normal, strength equal bilaterally - Psychiatric Psychiatric: appropriate mood/affect, intact judgment & insight - Neurologic Neurologic: CNII-XII intact, moves all extremities Plan Diet: diabetic Wound: per wound nurse instructions Additional Instructions: Continue bactrim. Last dose on 01/16. Call telemedicine prior to completion of antibiotics. Follow up with surgery clinic after discharge. Continue wound dressing as per cooker process cheese. Do not drive for now until range of movement of neck has improved. Follow up with lead man [facility] in [employer] in the office. Follow up with: CHAVO HORNER MD [Primary Care Provider] - 7 Days YUDI MINER DO [Staff Physician] - 7 Days Kaylee REILLY MD [Referring] - 7 Days Prescriptions: Sulfamethoxazole/Trimethoprim [Bactrim DS TAB] 1 each PO BID 13 Days #26 tablet Insulin NPH, Human [NovoLIN N] 22 unit SUB-Q BID #1000 units oxyCODONE ER [oxyCONTIN ER] 10 mg PO Q12HR #12 tablet oxyCODONE /ACETAMINOPHEN [Percocet 5/325 mg] 1 tab PO Q8HR PRN #12 tablet PRN Reason: Pain , Severe (7-10)
[2020-01-05] MEDS ORDERED: VANCOMYCIN 2,000 MG in SODIUM CHLORIDE 0.9% 500 ML 500 ML IV SCH (16:00)
== END 2020-01-05 16:00 | disposition home or self-care (01) | DRG 872 ==
LOC: ED 10:29 → 3A 12:32 → 3B-SURG 15:45
PROVIDERS: ADMIT Internal Medicine; ATTEND Internal Medicine
PROC: 0H94XZZ Drainage of Neck Skin, External Approach (ICD-10-PCS; principal; 2020-01-02)
DX: A41.9 Sepsis, unspecified organism (principal); L03.221 Cellulitis of neck; Z68.43 Body mass index [BMI] 50.0-59.9, adult; E66.2 Morbid (severe) obesity with alveolar hypoventilation; I10 Essential (primary) hypertension; Z82.49 Family history of ischemic heart disease and other diseases of the circulatory system; Z88.0 Allergy status to penicillin; Z83.3 Family history of diabetes mellitus
CPT/HCPCS: 36415; 70491; 71045; 80048; 80053; 80202; 81001; 82140; 82805; 82962; 83036; 85007; 85025; 85027; 85610; 86850; 86900; 86901; 87040; 87075; 87076; 87116; 87186; 93005; 94760; 96374; 99406; G0378; A6260; J1170; J1815; J2405; J2704; J3010; J3370; J7030; J7040; Q9967

== ENCOUNTER 2020-01-06 08:47 | Emergency (ER) | payer SELFPAY ==
--- NOTE | 2020-01-06 09:26 | Emergency Department Report ---
Chief Complaint: Wound/Laceration Stated Complaint: DRAINAGE Time Seen by Provider: 01/06/20 09:09 - HPI History of Present Illness: Patient is a 49-year-old male presents emergency room with complaints of a wound check. He states that he has had drainage from his incision and drainage site. Patient was evaluated in the emergency department on 01/02/2020 and was found to have a posterior neck abscess with surrounding induration and underwent an incision and drainage with general surgery. His wound was cultured and shows that he has staph aureus and patient was given a prescription for Bactrim which is sensitive. Home health care was set up during his hospital stay according to his record. vss on exam: There is an incision present to the midline posterior neck with associated packing present, there is a mild amount of brown/purulent drainage, there is no foul odor, there is mild edema but there is no erythema, no increased warmth Irrigated around the site with saline, site appears clean and intact at this time, no signs of increased abscess formation, there is a small amount of drainage, there is no erythema or increased warmth to suggest worsening of cellulitis, sterile dressing was placed over site and patient was given dressing to go home with advised pt Please continue to keep area clean, dry, covered. May wash around area with soap and water and immediately dry. No hot tub, no pool, no soaking in water. Please change your dressing 2-3 times a day. Please follow-up with a primary care doctor. Please follow-up with general surgery. Please take medications that you were prescribed during your admission. Return to emergency room for any new or worsening symptoms. Medical screening performed and there is no threat to life or limb at this time Wound care was performed Discussed strict return precautions Patient referred to the appropriate resources According to patient's hospital record he does have home health planned - Exam Vital Signs: Vital Signs 01/06/20 08:51 Temperature 97.6 F Pulse Rate 102 H Respiratory 16 Rate Blood Pressure 173/82 O2 Sat by Pulse 97 Oximetry MSE screening note: Focused history and physical exam performed. Due to findings the following was ordered: ED Medical Decision Making - Lab Data Vital Signs 01/06/20 01/06/20 08:51 09:33 Temperature 97.6 F Pulse Rate 102 H 91 H Respiratory 16 16 Rate Blood Pressure 173/82 Blood Pressure 170/100 [Left] O2 Sat by Pulse 97 98 Oximetry ED Disposition for MSE Clinical Impression: Visit for wound check Disposition: MED SCREENING EXAM-LEFT Is pt being admited?: No Does the pt Need Aspirin: No Condition: Stable Additional Instructions: Please continue to keep area clean, dry, covered. May wash around area with soap and water and immediately dry. No hot tub, no pool, no soaking in water. Please change your dressing 2-3 times a day. Please follow-up with a primary care doctor. Please follow-up with general surgery. Please take medications that you were prescribed during your admission. Return to emergency room for any new or worsening symptoms. Referrals: ADELE PHILLIPS MD [Staff Physician] - 2-3 Days [facility] [Provider Group] - 2-3 Days [facility] [Outside] - 2-3 Days YUDI MINER DO [Staff Physician] - 2-3 Days Time of Disposition: 09:25 Print Language: DANISH
[2020-01-06 09:37] VITALS: BP 170/100
== END 2020-01-06 09:34 | disposition left against medical advice (07) ==
LOC: ED 08:47
DX: R10.2 Pelvic and perineal pain (principal); Z53.21 Procedure and treatment not carried out due to patient leaving prior to being seen by health care provider